=== PATIENT | male | born 1950 | race Caucasian/White ===

== ENCOUNTER 2017-12-26 09:39 | Emergency (ER) | payer MEDICARE ==
[2017-12-26 09:47] VITALS: TEMP 98.5
[2017-12-26] MEDS ORDERED: SODIUM CHLORIDE 0.9% 500 ML IV ONE (10:07)
[2017-12-26] MEDS ORDERED: KETOROLAC 30 MG/ML 1 ML VIAL IVP STA (10:08)
--- NOTE | 2017-12-26 10:10 | ED ---
General Adult HPI - General Chief complaint: Recheck/Abnormal Lab/Rx Stated complaint: High blood pressure Time Seen by Provider: 12/26/17 09:52 Source: patient, RN notes reviewed Mode of arrival: ambulatory Limitations: no limitations - History of Present Illness Initial comments: 67-year-old male presents emergency Department with chief complaint of hypertension. Patient states that he was at his dentist to have the tooth extracted they found him to be hypertensive and sent him to the hospital. Patient states she does take losartan for his blood pressure he has no specific complaint other than some left lower dental pain. He denies chest pain, shortness breath, headache, dizziness, nausea vomiting. Patient states she did take her [place] for pain. Patient states he has not missed any doses of his blood pressure medication. - Related Data Allergies Allergy/AdvReac Type Severity Reaction Status Date / Time Sulfa (Sulfonamide AdvReac Unknown Verified 12/26/17 09:47 Antibiotics) Review of Systems ROS Statement: Those systems with pertinent positive or pertinent negative responses have been documented in the HPI. ROS Other: All systems not noted in ROS Statement are negative. Past Medical History Past Medical History: Cancer, Diabetes Mellitus, Hyperlipidemia, Hypertension Additional Past Medical History / Comment(s): previous colon cancer in 1987 History of Any Multi-Drug Resistant Organisms: None Reported Past Surgical History: Bowel Resection Past Psychological History: Depression Smoking Status: Never smoker Past Alcohol Use History: None Reported Past Drug Use History: None Reported General Exam Limitations: no limitations General appearance: alert, in no apparent distress Head exam: Present: atraumatic, normocephalic, normal inspection Eye exam: Present: normal appearance, PERRL, EOMI. Absent: scleral icterus, conjunctival injection, periorbital swelling ENT exam: Present: mucous membranes moist. Absent: normal exam, normal oropharynx (Edentulous) Neck exam: Present: normal inspection, full ROM. Absent: tenderness, meningismus, lymphadenopathy Respiratory exam: Present: normal lung sounds bilaterally. Absent: respiratory distress, wheezes, rales, rhonchi, stridor Cardiovascular Exam: Present: regular rate, normal rhythm, normal heart sounds. Absent: systolic murmur, diastolic murmur, rubs, gallop, clicks Course Vital Signs 12/26/17 12/26/17 09:41 11:04 Temperature 98.5 F Pulse Rate 65 66 Respiratory 18 16 Rate Blood Pressure 214/103 171/77 O2 Sat by Pulse 98 95 Oximetry EKG Findings - EKG Comments: EKG Findings:: EKG performed at 9:52 sinus bradycardia with a rate of 59 MD 186 QRS 74 QT/QTC 388/384 Medical Decision Making - Medical Decision Making 67-year-old male presented from [place] office for elevated blood pressure. Patient's blood pressure was initially elevated on triage. Patient's blood pressure has improved with no medications currently blood pressure 150/72. Patient is asymptomatic. Patient does take losartan currently. He'll follow- up with his PCP for recheck and return parameters were discussed. - Lab Data Result diagrams: 12/26/17 10:06 12/26/17 10:06 Lab Results 12/26/17 12/26/17 12/26/17 Range/Units 10:06 10:06 10:06 WBC 8.3 (3.8-10.6) k/uL RBC 5.20 (4.30-5.90) m/uL Hgb 14.6 (13.0-17.5) gm/dL Hct 44.7 (39.0-53.0) % MCV 85.9 (80.0-100.0) fL MCH 28.0 (25.0-35.0) pg MCHC 32.6 (31.0-37.0) g/dL RDW 13.4 (11.5-15.5) % Plt Count 170 (150-450) k/uL Neutrophils % 70 % Lymphocytes % 19 % Monocytes % 7 % Eosinophils % 2 % Basophils % 0 % Neutrophils # 5.8 (1.3-7.7) k/uL Lymphocytes # 1.6 (1.0-4.8) k/uL Monocytes # 0.6 (0-1.0) k/uL Eosinophils # 0.2 (0-0.7) k/uL Basophils # 0.0 (0-0.2) k/uL Sodium 140 (137-145) mmol/L Potassium 4.3 (3.5-5.1) mmol/L Chloride 105 (98-107) mmol/L Carbon Dioxide 26 (22-30) mmol/L Anion Gap 9 mmol/L BUN 17 (9-20) mg/dL Creatinine 1.09 (0.66-1.25) mg/dL Est GFR (CKD-EPI)AfAm 80 (>60 ml/min/1.73 sqM) Est GFR (CKD-EPI)NonAf 69 (>60 ml/min/1.73 sqM) Glucose 145 H (74-99) mg/dL Calcium 9.4 (8.4-10.2) mg/dL Total Bilirubin 0.6 (0.2-1.3) mg/dL AST 23 (17-59) U/L ALT 36 (21-72) U/L Alkaline Phosphatase 66 (38-126) U/L Troponin I 0.013 (0.000-0.034) ng/mL Total Protein 6.7 (6.3-8.2) g/dL Albumin 4.1 (3.5-5.0) g/dL Disposition Clinical Impression: Hypertension Disposition: HOME SELF-CARE Condition: Stable Instructions: Hypertension (ED) Additional Instructions: Your blood pressure while emergency department was 158/72. Continue to monitor your blood pressure and follow-up with your PCP. Please return to the Emergency Department if symptoms worsen or any other concerns. Is patient prescribed a controlled substance at d/c from ED?: No Referrals: Panda Peters MD [Primary Care Provider] - 1-2 days Time of Disposition: 11:22
[2017-12-26 10:34] LABS: Basophils % (A) 0 %; Eosinophils # (A) 0.2 k/uL (0-0.7); Eosinophils % (A) 2 %; HCT 44.7 % (39.0-53.0); HGB 14.6 gm/dL (13.0-17.5); Lymphocytes # (A) 1.6 k/uL (1.0-4.8); Lymphocytes % (A) 19 %; MCHC 32.6 g/dL (31.0-37.0); MCV 85.9 fL (80.0-100.0); Mean Platelet Volume 7.7; Monocytes # (A) 0.6 k/uL (0-1.0); Monocytes % (A) 7 %; Neutrophils # (A) 5.8 k/uL (1.3-7.7); Neutrophils % (A) 70 %; Platelet Count 170 k/uL (150-450); RDW 13.4 % (11.5-15.5); WBC 8.3 k/uL (3.8-10.6)
[2017-12-26 10:40] LABS: Albumin 4.1 g/dL (3.5-5.0); Calcium 9.4 mg/dL (8.4-10.2); Potassium 4.3 mmol/L (3.5-5.1); Total Bilirubin 0.6 mg/dL (0.2-1.3); Total Protein 6.7 g/dL (6.3-8.2)
[2017-12-26 11:28] VITALS: BP 142/69; PULSE 68; RESP 18
== END 2017-12-26 11:42 | disposition home or self-care (01) ==
LOC: EC 09:39
DX: I10 Essential (primary) hypertension (principal); K08.89 Other specified disorders of teeth and supporting structures; Z85.038 Personal history of other malignant neoplasm of large intestine; Z88.2 Allergy status to sulfonamides
CPT/HCPCS: 36415; 93005; 80053; 84484; 85025; 99283; 96374; 96361; J1885

== ENCOUNTER 2018-09-25 07:23 | Day surgery (SDC) | payer MEDICARE ==
[2018-09-24 09:27] VITALS: BMI 52.2
[~2018-09-25 07:23] MED LIST: LACTATED RINGERS 1,000 ML IV SCH; LIDOCAINE 1% 20 ML VIAL (10MG/ML) FOR IV START INTRADERMA PRN
[2018-09-25 07:57] LABS: Glucose,Whole Blood 145 mg/dL (75-99)
[2018-09-25 08:04] VITALS: TEMP 96.6
[2018-09-25] MEDS ORDERED: PROPOFOL 10 MG/ML 20 ML VIAL IV ONE (08:16)
--- NOTE | 2018-09-25 08:34 | P.PCN ---
Date of Procedure: 09/25/18 Procedure(s) Performed: BRIEF HISTORY: Patient is a 68-year-old pleasant white male, scheduled for an elective colonoscopy as a part of surveillance of prior history of colon cancer diagnosed in 1997. His last colonoscopy was 5 years ago. PROCEDURE PERFORMED: Colonoscopy. PREOPERATIVE DIAGNOSIS: History of colon cancer diagnosed 1997. IV sedation per Anesthesia. PROCEDURE: After informed consent was obtained, the patient, was brought into the endoscopy unit. IV sedation was administered by Anesthesia under continuous monitoring. Digital rectal examination was normal. Initially the Olympus CF-160 flexible video colonoscope was then inserted in the rectum, gradually advanced into the right colon there was early colon cancer anastomosis was visualized and appeared normal. Mucosa of the ascending colon, transverse colon, descending colon, sigmoid colon, and rectum appeared normal. Retroflexion was performed in the rectum and no lesions were seen. The patient tolerated the procedure well. IMPRESSION: Normal-appearing colon from rectum to right colon. No evidence of colitis or colorectal neoplasia. RECOMMENDATIONS: Findings of this examination were discussed with the patient as well as his family. He was advised to have a repeat the surveillance colonoscopy in 5 years..
[2018-09-25 08:41] VITALS: RESP 16
[2018-09-25 08:54] VITALS: BP 156/84; PULSE 55
== END 2018-09-25 09:11 | disposition home or self-care (01) ==
LOC: ORWHC2ENDO 07:23
PROVIDERS: ATTEND Internal Medicine Gastroenterology
DX: Z12.11 Encounter for screening for malignant neoplasm of colon (principal); I10 Essential (primary) hypertension; E78.5 Hyperlipidemia, unspecified; E11.9 Type 2 diabetes mellitus without complications; E66.01 Morbid (severe) obesity due to excess calories; Z79.84 Long term (current) use of oral hypoglycemic drugs; Z79.899 Other long term (current) drug therapy; Z90.49 Acquired absence of other specified parts of digestive tract; Z85.038 Personal history of other malignant neoplasm of large intestine; Z88.2 Allergy status to sulfonamides; Z68.43 Body mass index [BMI] 50.0-59.9, adult
CPT/HCPCS: J2704; G0105; 45378

== ENCOUNTER 2019-10-21 11:25 | Emergency (ER) | payer MEDICARE ==
[2019-10-21 11:35] VITALS: RESP 18
--- NOTE | 2019-10-21 11:50 | ED ---
Abdominal Pain HPI - General Chief Complaint: Abdominal Pain Stated Complaint: bowel problems Time Seen by Provider: 10/21/19 11:49 Source: patient, family Mode of arrival: wheelchair Limitations: no limitations - History of Present Illness Initial Comments: 69-year-old male presenting today for chief complaint of constipation. Patient states he is constipated for 3 days. Enteric A at home laxative he states he had diarrhea. Patient states the past day and a half he has not had additional bowel movement patient was concerned he is obstructed and presented to the emergency department he denies any nausea vomiting or abdominal pain he states he feels slightly distended. Remaining review of system negative - Related Data Home Medications Medication Instructions Recorded Confirmed Ergocalciferol (Vitamin D2) 50,000 unit PO TU 09/24/18 09/25/18 [Vitamin D2] Hydrocodone/Acetaminophen [Vicodin 1 tab PO Q6HR PRN 09/24/18 09/25/18 Hp 10-300 mg Tablet] Losartan Potassium 100 mg PO DAILY 09/24/18 09/25/18 Simvastatin [Zocor] 20 mg PO HS 09/24/18 09/25/18 glipiZIDE [Glucotrol] 10 mg PO AC-BID 09/24/18 09/25/18 metFORMIN HCL 1,000 mg PO BID 09/24/18 09/25/18 traZODone HCL 50 mg PO HS 09/24/18 09/25/18 Allergies Allergy/AdvReac Type Severity Reaction Status Date / Time Sulfa (Sulfonamide AdvReac Abdominal Verified 10/21/19 11:35 Antibiotics) Pain Review of Systems ROS Statement: Those systems with pertinent positive or pertinent negative responses have been documented in the HPI. ROS Other: All systems not noted in ROS Statement are negative. Past Medical History Past Medical History: Cancer, Diabetes Mellitus, Hyperlipidemia, Hypertension Additional Past Medical History / Comment(s): previous colon cancer in 1987-with sx and chemo History of Any Multi-Drug Resistant Organisms: None Reported Past Surgical History: Appendectomy, Bowel Resection, Tonsillectomy Additional Past Surgical History / Comment(s): colonoscopy. 20% colon removed in 1987 Past Anesthesia/Blood Transfusion Reactions: No Reported Reaction Past Psychological History: Depression Smoking Status: Never smoker - Past Family History Father Family Medical History: Cancer Sister(s) Family Medical History: Cancer Additional Family Medical History / Comment(s): ONE SISTER-OVARIAN CANCER. ONE SISTER -LIVER General Exam - General Exam Comments Initial Comments: General: The patient is awake and alert, in no distress Eye: +3 mm pupils are equal, round and reactive to light, extra-ocular movements are intact. No nystagmus. There is normal conjunctiva bilaterally. No signs of icterus. Ears, nose, mouth and throat: There are moist mucous membranes and no oral lesions. Neck: The neck is supple, there is no tenderness or JVD. Cardiovascular: There is a regular rate and rhythm. No murmur, rub or gallop is appreciated. Respiratory: Lungs are clear to auscultation, respirations are non-labored, breath sounds are equal. No wheezes, stridor, rales, or rhonchi. Gastrointestinal: Soft, non-distended, non-tender abdomen without masses or o rganomegaly noted. There is no rebound or guarding present. Musculoskeletal: Normal ROM, no tenderness. Strength 5/5. Sensation intact. Radial pulses equal bilaterally 2+. Neurological: A&O x 3. CN II-XII intact grossly, There are no obvious motor or sensory deficits. Coordination appears grossly intact. Speech is normal. Skin: Skin is warm and dry and no rashes or lesions are noted. Psychiatric: Cooperative, appropriate mood & affect, normal judgment. Limitations: no limitations Course Vital Signs 10/21/19 10/21/19 11:31 14:33 Temperature 97.7 F 97.0 F L Pulse Rate 61 67 Respiratory 18 18 Rate Blood Pressure 147/83 140/88 O2 Sat by Pulse 97 97 Oximetry Medical Decision Making - Medical Decision Making Pt not obstructed on CT, redemonstrated ileus. Patient abdomen non-tender. No stool ball appreciated on CT. Patient will be discharged with bowel regime, return parameters discussed. I discussed incidental findings of cyst on pancreas and recommended pcp f/u with GI referral, possible MRI for further evaluation. Patient agreeable to this care plan and discharge. Dr. Hernandez is agreeable to care plan. - Lab Data Result diagrams: 10/21/19 11:45 10/21/19 11:45 Lab Results 10/21/19 10/21/19 Range/Units 11:45 11:45 WBC 10.5 (3.8-10.6) k/uL RBC 5.24 (4.30-5.90) m/uL Hgb 14.8 (13.0-17.5) gm/dL Hct 46.5 (39.0-53.0) % MCV 88.9 (80.0-100.0) fL MCH 28.3 (25.0-35.0) pg MCHC 31.8 (31.0-37.0) g/dL RDW 13.3 (11.5-15.5) % Plt Count 199 (150-450) k/uL Neutrophils % 80 % Lymphocytes % 12 % Monocytes % 5 % Eosinophils % 1 % Basophils % 0 % Neutrophils # 8.4 H (1.3-7.7) k/uL Lymphocytes # 1.3 (1.0-4.8) k/uL Monocytes # 0.6 (0-1.0) k/uL Eosinophils # 0.1 (0-0.7) k/uL Basophils # 0.0 (0-0.2) k/uL Sodium 136 L (137-145) mmol/L Potassium 4.7 (3.5-5.1) mmol/L Chloride 99 (98-107) mmol/L Carbon Dioxide 28 (22-30) mmol/L Anion Gap 9 mmol/L BUN 17 (9-20) mg/dL Creatinine 0.92 (0.66-1.25) mg/dL Est GFR (CKD-EPI)AfAm >90 (>60 ml/min/1.73 sqM) Est GFR (CKD-EPI)NonAf 84 (>60 ml/min/1.73 sqM) Glucose 209 H (74-99) mg/dL Calcium 9.8 (8.4-10.2) mg/dL Total Bilirubin 0.5 (0.2-1.3) mg/dL AST 27 (17-59) U/L ALT 25 (4-49) U/L Alkaline Phosphatase 66 (38-126) U/L Total Protein 6.9 (6.3-8.2) g/dL Albumin 4.1 (3.5-5.0) g/dL Disposition Clinical Impression: Ileus, Diarrhea Disposition: HOME SELF-CARE Condition: Good Instructions (If sedation given, give patient instructions): Ileus (ED) Additional Instructions: Please use medication as discussed. Please follow-up with family doctor in the next 2 days. Please return to emergency room if the symptoms increase or worsen or for any other concerns. Is patient prescribed a controlled substance at d/c from ED?: No Referrals: Maylin Reynoso MD [Primary Care Provider] - 1-2 days Time of Disposition: 14:15
[2019-10-21 12:04] LABS: Basophils % (A) 0 %; Eosinophils # (A) 0.1 k/uL (0-0.7); Eosinophils % (A) 1 %; HCT 46.5 % (39.0-53.0); HGB 14.8 gm/dL (13.0-17.5); Lymphocytes # (A) 1.3 k/uL (1.0-4.8); Lymphocytes % (A) 12 %; MCH 28.3 pg (25.0-35.0); MCHC 31.8 g/dL (31.0-37.0); MCV 88.9 fL (80.0-100.0); Mean Platelet Volume 7.5; Monocytes # (A) 0.6 k/uL (0-1.0); Monocytes % (A) 5 %; Neutrophils # (A) 8.4 k/uL (1.3-7.7); Neutrophils % (A) 80 %; Platelet Count 199 k/uL (150-450); RBC 5.24 m/uL (4.30-5.90); RDW 13.3 % (11.5-15.5); WBC 10.5 k/uL (3.8-10.6)
--- NOTE | 2019-10-21 12:13 | XR ---
EXAMINATION TYPE: XR KUB DATE OF EXAM: 10/21/2019 COMPARISON: None INDICATION: Constipation TECHNIQUE: Single view abdomen upright view FINDINGS: Nonspecific small bowel gas is present. There is some air within the colon. Suspicious differential a ir-fluid levels are not evident. No free air is evident. Psoas margins are normal. No organomegaly is present. IMPRESSION: 1. Nonspecific abdomen. Consider focal ileus within the left midabdomen.
[2019-10-21 12:14] LABS: ALT 25 U/L (4-49); AST 27 U/L (17-59); African American GFR (CKD) >90 (>60 ml/min/1.73 sqM); Albumin 4.1 g/dL (3.5-5.0); Alkaline Phosphatase 66 U/L (38-126); Anion Gap 9 mmol/L; Blood Urea Nitrogen 17 mg/dL (9-20); Calcium 9.8 mg/dL (8.4-10.2); Carbon Dioxide 28 mmol/L (22-30); Chloride 99 mmol/L (98-107); Glucose 209 mg/dL (74-99); Non-African American GFR(CKD) 84 (>60 ml/min/1.73 sqM); Potassium 4.7 mmol/L (3.5-5.1); Sodium 136 mmol/L (137-145); Total Bilirubin 0.5 mg/dL (0.2-1.3); Total Protein 6.9 g/dL (6.3-8.2)
--- NOTE | 2019-10-21 14:02 | CT ---
EXAMINATION TYPE: CT abdomen pelvis w con DATE OF EXAM: 10/21/2019 COMPARISON: None INDICATION: pain, bowel issues DLP: 3482.2 mGycm, Automated exposure control for dose reduction was used. CONTRAST: 100 mL of Isovue 300. Study performed without Oral Contrast TECHNIQUE: Axial images were obtained from above the diaphragm to the pubic rami in the axial plane a t 5 mm thick sections. Reconstructed images are reviewed on the computer in the coronal plane. FINDINGS: Limited CT sections are obtained the lung bases. The lung bases are clear. CT ABDOMEN: Liver: Fatty infiltration liver Spleen: Normal Pancreas: At the posterior body of the pancreas is a hypodense structure measuring 2.2 x 1.8 cm. Tez tional workup is recommended. This measures 4 Hounsfield units. Cyst could be considered. Cystadenoma and cystadenocarcinoma should be considered as well. This is less distinct on the delayed images. Adrenal glands: The adrenal glands are normal. Gallbladder: Normal Kidneys: No masses are evident. No hydronephrosis is present. No cysts are present. Delayed images were obtained through the kidneys, which remain unremarkable. Aorta: Vascular calcification is within the aorta. Inferior vena cava: Normal. CT PELVIS: There are dilated fluid-filled small bowel loops within the midabdomen. Some fecal debris may be in t he ileum. Some mild change may be adjacent to the fecal debris filled ileum. Wall thickening is not e vident. There are loops of bowel which are incompletely distended or lack oral contrast limiting thei r evaluation. Appendix: Not identified. Urinary bladder: Normal. Genitourinary structures: Prostate appears unremarkable. Osseous structures: No suspicious lytic or sclerotic lesions. IMPRESSIONS: 1. Prominent small bowel loops without wall thickening. Some fecal debris within and inflammatory ch dara may be adjacent to the dilated ileum. Correlate for mild ileitis. 2. Cystlike structure within the posterior body of the pancreas. Additional workup with contrast MRI is recommended. Cyst would be within the differential. Other etiologies including neoplasm are not ex cluded at this time. 3. Mild fatty infiltration the liver.
[2019-10-21] MEDS ORDERED: POLYETHYLENE GLYCOL 3350 17 GM POWD.PACK PO STA (14:13)
[2019-10-21 14:33] VITALS: BP 140/88; PULSE 67; TEMP 97
== END 2019-10-21 14:33 | disposition home or self-care (01) ==
LOC: EC 11:25
DX: K56.7 Ileus, unspecified (principal); R19.7 Diarrhea, unspecified; F32.9 Major depressive disorder, single episode, unspecified; E11.9 Type 2 diabetes mellitus without complications; E78.5 Hyperlipidemia, unspecified; I10 Essential (primary) hypertension; Z79.84 Long term (current) use of oral hypoglycemic drugs; Z79.899 Other long term (current) drug therapy; Z88.2 Allergy status to sulfonamides; Z92.21 Personal history of antineoplastic chemotherapy; Z85.038 Personal history of other malignant neoplasm of large intestine; Z98.890 Other specified postprocedural states
CPT/HCPCS: 36415; 80053; 85025; 74018; 74177; 99284; Q9967

== ENCOUNTER → 2020-10-28 | Outpatient (CLI) | payer MEDICARE ==
--- NOTE | 2020-10-28 17:18 | XR ---
EXAMINATION TYPE: XR knee complete LT DATE OF EXAM: 10/28/2020 CLINICAL HISTORY: Strain injury 20 years ago with pain. TECHNIQUE: Three views of the left knee are obtained. COMPARISON: Left knee x-ray June 21, 2015. FINDINGS: There is no acute fracture/dislocation evident in the left knee. Medial meniscal calcifica tion identified. Moderate to severe narrowing with moderate medial spurring medial tibial femoral com partment more prominent than prior. Mild narrowing and spurring patellofemoral compartment similar to prior. Overlying soft tissue is unremarkable. IMPRESSION: Progressed osteoarthritic changes as detailed above.
--- NOTE | 2020-10-28 17:20 | XR ---
EXAMINATION TYPE: XR shoulder complete LT DATE OF EXAM: 10/28/2020 CLINICAL HISTORY: Pain running down left arm. TECHNIQUE: Three views of the left shoulder are obtained. COMPARISON: None. FINDINGS: There is no acute fracture/dislocation evident in the left shoulder. Moderate narrowing gl enohumeral joint. Moderate to severe narrowing of the acromioclavicular joint. Distal acromion morph ology unremarkable. The visualized ribs are intact . IMPRESSION: As above.
== END | disposition home or self-care (01) ==
LOC: RADXRMAIN 15:06
PROVIDERS: ATTEND Internal Medicine
DX: M17.12 Unilateral primary osteoarthritis, left knee (principal); M25.812 Other specified joint disorders, left shoulder

== ENCOUNTER → 2021-05-31 | Outpatient (CLI) | payer MEDICARE ==
--- NOTE | 2021-05-31 13:01 | CT ---
EXAMINATION TYPE: CT urogram wo/w con DATE OF EXAM: 05/31/2021 COMPARISON: CT abdomen and pelvis October 21, 2019 HISTORY: hematuria CT DLP: 3623 mGycm, Automated Exposure Control for Dose Reduction was Utilized. CONTRAST: CT scan of the abdomen and pelvis is performed without oral and without and with IV Contrast, patient injected with 80 mL of Isovue 300. FINDINGS: Suboptimal due to large body habitus. KUB: Noncontrast images show no definitive right-sided calculi. There is suggestion of 1-2 small 1 t o 2 mm nonobstructing mid to lower pole left renal calculi coronal images 59 and 60 series 4. Postcon trast images show symmetric corticomedullary uptake and excretion without hydronephrosis seen bilater ally. There is heterogeneous partially exophytic ball-shaped mass from the anterior aspect mid to low er pole left kidney measuring 5.2 x 5.1 cm axial image 41 series 6 x 4.2 cm craniocaudal dimension sa gittal image 94. Incomplete enhancement of bilateral ureters without obstructing mass or calculus. No additional mass or calculus within the urinary bladder. There is a patent draining left renal vein n oted. LUNG BASES: No significant abnormality is appreciated. LIVER/GB: No significant abnormality is appreciated. PANCREAS: Some mild to moderate focal atrophy level pancreatic head is redemonstrated. SPLEEN: No significant abnormality is seen. ADRENALS: No significant abnormality is seen. BOWEL: No significant abnormality is seen. PROSTATE/SEMINAL VESICLES: Prostate gland mildly enlarged in size. LYMPH NODES: No greater than 1cm abdominal or pelvic lymph nodes are appreciated. OSSEOUS STRUCTURES: [id number]-gn-[id number] multilevel spurring throughout the spine. Facet arthropathy lowe r lumbar levels. OTHER: No significant additional abnormality is seen. IMPRESSION: There is heterogeneous enhancing partially exophytic ball-shaped 5.2 cm mass in the anter ior aspect mid to lower pole left kidney consistent with renal cell carcinoma. Advise surgical referr alSonja
== END | disposition home or self-care (01) ==
LOC: RADCTMAIN 11:00
PROVIDERS: ATTEND Urology
DX: N28.89 Other specified disorders of kidney and ureter (principal)
CPT/HCPCS: 82565; 84520; 74178; 36415; 74400; Q9967

== ENCOUNTER → 2021-06-27 | Outpatient (CLI) | payer MEDICARE ==
[2021-06-27 19:00] LABS: Basophils # (A) 0.02 X 10*3/uL (0.00-0.10); Basophils % (A) 0.3 %; Eosinophils # (A) 0.17 X 10*3/uL (0.04-0.35); Eosinophils % (A) 2.6 %; HCT 42.5 % (39.6-50.0); HGB 13.2 g/dL (13.0-17.0); Immature Grans, Automated 0.5 %; Lymphocytes # (A) 2.02 X 10*3/uL (0.90-5.00); Lymphocytes % (A) 30.4 %; MCH 28.7 pg (27.0-32.0); MCHC 31.1 g/dL (32.0-37.0); MCV 92.4 fL (80.0-97.0); Mean Platelet Volume 10.5 fL (9.5-12.2); Monocytes # (A) 0.64 X 10*3/uL (0.20-1.00); Monocytes % (A) 9.6 %; NRBC Per 100 WBC 0 /100 WBCS (0.0-0.0); Neutrophils # (A) 3.77 X 10*3/uL (1.80-7.70); Neutrophils % (A) 56.6 %; Platelet Count 180 X 10*3/uL (140-440); WBC 6.65 X 10*3/uL (4.50-10.00)
[2021-06-27 19:11] LABS: African American GFR (CKD) 63.2 (60.0-200.0); Anion Gap 9.7 mmol/L (10.00-18.00); BUN/Creat Ratio 12.62 Ratio (12.00-20.00); Blood Urea Nitrogen 16.4 mg/dL (9.0-27.0); Calcium 9.4 mg/dL (8.7-10.3); Carbon Dioxide 27.3 mmol/L (20.0-27.5); Non-African American GFR(CKD) 54.5 (60.0-200.0); Potassium 4.4 mmol/L (3.5-5.5)
[2021-06-28 08:08] LABS: Appearance,Urine Clear (Clear); Bilirubin,Urine Negative (Negative); Blood,Urine Negative (Negative); Color,Urine Yellow (Yellow); Ketones,Urine Negative (Negative); Leukocyte Esterase,Urine Negative (Negative); Nitrite,Urine Negative (Negative); Protein,Urine Negative (Negative); Specific Gravity,Urine 1.019 (1.001-1.030); Urobilinogen,Urine 0.2 E.U./DL (0.0-1.0)
== END | disposition home or self-care (01) ==
LOC: LABPAT 13:20
PROVIDERS: ATTEND Urology
DX: Z01.812 Encounter for preprocedural laboratory examination (principal); D41.02 Neoplasm of uncertain behavior of left kidney
CPT/HCPCS: 36415; 80048; 81003; 85025; 87086

== ENCOUNTER 2021-07-04 08:56 | Day surgery (SDC) | payer MEDICARE ==
[2021-06-30 11:40] VITALS: BMI 53.2
--- NOTE | 2021-07-04 08:35 | P.HPIHPCON ---
History of Present Illness H&P Date: 07/04/21 Chief Complaint: Bladder tumor, left renal mass This is a 71-year-old male with history of gross hematuria. He underwent a cystoscopy that showed evidence of multiple small papillary bladder tumors, along the right posterior wall. Of note CT also showed a 6 cm left lower pole mass. Discussed with him given this finding I recommended proceeding with a transurethral resection of a bladder tumor. At the same time we'll perform a retrograde pyelogram possible ureteroscopy on the left to rule out transitional cell carcinoma on that site, given the CT finding. But discussed both with him and his daughter that the mass appeared more of a renal cell carcinoma rather than a transitional cell carcinoma. Discussed with him he will eventually require a left radical nephrectomy vs nephroureterectomy. Discussed the risk of the procedure which includes bleeding, infection, bladder perforation. He understood all the risk and agreed to proceed Consent for Procedure: I have explained the operation/procedure to the patient, including the risks, benefits, side effects, alternative therapies (including not receiving the proposed treatment or service), the likelihood of the patient achieving his/her goals, and potential recuperation problems for the procedure/sedation/analgesia, as well as any blood products, if indicated. I also explained to the patient the risks, benefits and side effects of the alternatives, as well as the risks related to not receiving the proposed procedure, care, treatment, or services. Past Medical History Past Medical History: Cancer, Diabetes Mellitus, Hyperlipidemia, Hypertension Additional Past Medical History / Comment(s): bladder tumor,left kidney mass, hx previous colon cancer in 1987-with sx and chemo,kidney stones,bleeding gastric ulcer History of Any Multi-Drug Resistant Organisms: None Reported Past Surgical History: Appendectomy, Bowel Resection, Tonsillectomy Additional Past Surgical History / Comment(s): colonoscopy. 20% colon removed in 1987 Past Anesthesia/Blood Transfusion Reactions: No Reported Reaction Additional Past Anesthesia/Blood Transfusion Reaction / Comment(s): no problems with prior blood transfusions Smoking Status: Current some day smoker - Past Family History Father Family Medical History: Cancer Additional Family Medical History / Comment(s): kidney CA Sister(s) Family Medical History: Cancer Additional Family Medical History / Comment(s): ONE SISTER-OVARIAN CANCER. ONE SISTER -LIVER Medications and Allergies Home Medications Medication Instructions Recorded Confirmed Type Ergocalciferol (Vitamin D2) 50,000 unit PO TU 09/24/18 06/30/21 History [Vitamin D2] Hydrocodone/Acetaminophen [Vicodin 1 tab PO Q6HR PRN 09/24/18 06/30/21 History Hp 10-300 mg Tablet] Losartan Potassium 100 mg PO HS 09/24/18 06/30/21 History Simvastatin [Zocor] 20 mg PO HS 09/24/18 06/30/21 History glipiZIDE [Glucotrol] 10 mg PO AC-BID 09/24/18 06/30/21 History metFORMIN HCL [Glucophage] 1,000 mg PO BID 09/24/18 06/30/21 History traZODone HCL 100 mg PO HS 09/24/18 06/30/21 History Ferrous Sulfate [Iron] 325 mg PO DAILY 06/30/21 06/30/21 History Multivit-Min/Folic/Vit K/Lycop 1 each PO DAILY 06/30/21 06/30/21 History [Men's Multivitamin Tablet] Pioglitazone HCl 30 mg PO DAILY 06/30/21 06/30/21 History Allergies Allergy/AdvReac Type Severity Reaction Status Date / Time Sulfa (Sulfonamide AdvReac Abdominal Verified 06/30/21 11:09 Antibiotics) Pain Surgical - Exam - General no distress - ENT normal nares, normal mucosa - Respiratory normal expansion, normal respiratory effort - Abdomen Abdomen: soft, non tender - Psychiatric oriented to time, oriented to person, oriented to place Assessment and Plan Assessment: 71-year-old male with history of a bladder mass -Or for TURBT, left retrograde pyelogram, possible ureteroscopy
[~2021-07-04 08:56] MED LIST changes: +DEXAMETHASONE SOD PHOSPHATE 4 MG/ML 1 ML VIAL IV ONE; +HYDROmorphone 0.5 MG/0.5 ML SYRINGE IVP PRN; -LIDOCAINE 1% 20 ML VIAL (10MG/ML) FOR IV START INTRADERMA PRN; +MIDAZOLAM 2 MG/2 ML VIAL IV PRN; +ONDANSETRON 4 MG/2 ML VIAL IVP ONE
[2021-07-04 09:54] LABS: Glucose,Whole Blood 118 mg/dL (75-99)
[2021-07-04] MEDS ORDERED: LIDOCAINE 1% INJ 10MG/ML (20 ML MDV) ONE (10:04)
[2021-07-04] MEDS ORDERED: GLYCOPYRROLATE 0.2 MG/ML 2 ML VIAL ONE (10:04)
[2021-07-04] MEDS ORDERED: PROPOFOL 10 MG/ML 20 ML VIAL IV ONE (10:04)
[2021-07-04] MEDS ORDERED: SUCCINYLCHOLINE CHLORIDE 100 MG/5 ML SYR IV ONE (10:04)
[2021-07-04] MEDS ORDERED: ROCURONIUM 10 MG/ML (5 ML VIAL) IV ONE (10:04)
[2021-07-04] MEDS ORDERED: NEOSTIGMINE 1 MG/ML 10 ML VIAL ONE (10:04)
[2021-07-04] MEDS ORDERED: fentaNYL (PF) 50 MCG/ML 2 ML AMP ONE (10:04)
[2021-07-04] MEDS ORDERED: MIDAZOLAM 2 MG/2 ML VIAL ONE (10:04)
[2021-07-04] MEDS ORDERED: IOPAMIDOL-370 50ML BTL MISCELLANE ONE (10:33)
--- NOTE | 2021-07-04 10:55 | FL ---
EXAMINATION TYPE: FL urography retrograde DATE OF EXAM: 07/04/2021 CLINICAL HISTORY: Left-sided kidney stone TECHNIQUE: Fluoroscopy. COMPARISON: None. FINDINGS: Fluoroscopic guidance was provided during cystoscopy with retrograde urogram procedure per formed by Dr. Ricks. A total of 14 seconds of fluoroscopic time was utilized during the procedure a nd 4 spot images was acquired. Images acquired show access and subsequent opacification of the left u reter. IMPRESSION: As Above.
--- NOTE | 2021-07-04 11:17 | P.OP ---
Date of Procedure: 07/04/21 Preoperative Diagnosis: Bladder tumor Postoperative Diagnosis: Left renal mass, bladder tumor, bladder stones Procedure(s) Performed: TURBT ( medium), left retrograde pyelogram, bladder stone irrigation Implants: none Anesthesia: VALENTINOA Surgeon: Rey Dean Estimated Blood Loss (ml): 10 Pathology: other (bladder tumor, bladder stone, left renal cytology) Condition: stable Disposition: PACU Indications for Procedure: This is a 71-year-old male with history of gross hematuria. He underwent a cystoscopy that showed evidence of multiple small papillary bladder tumors, along the right posterior wall. Of note CT also showed a 6 cm left lower pole mass. Discussed with him given this finding I recommended proceeding with a transurethral resection of a bladder tumor. At the same time we'll perform a retrograde pyelogram possible ureteroscopy on the left to rule out transitional cell carcinoma on that site, given the CT finding. But discussed both with him and his daughter that the mass appeared more of a renal cell carcinoma rather than a transitional cell carcinoma. Discussed with him he will eventually require a left radical nephrectomy vs nephroureterectomy. Discussed the risk of the procedure which includes bleeding, infection, bladder perforation. He understood all the risk and agreed to proceed Operative Findings: Erythematous, edematous lesion along the right lateral wall measured 1 cm an additional one along the dome measured approximately 2 cm, Description of Procedure: Patient was brought to the operating room, general anesthesia was induced. He was prepped and draped in sterile fashion and placed in dorsal lithotomy position. A cystoscopy fitted with a 21-[place] sheath was inserted per urethra, cystoscopy was performed which showed a moderately enlarged prostate, there was evidence of 2 edematous lesions, 1 along the right lateral wall and one along the dome. Attention was then carried to the left ureteral orifice which was intubated with an open-ended catheter. Catheter was advanced into the renal pelvis, and cytology was obtained. Next retrograde pyelogram was performed on the left side which showed no filling defect or hydronephrosis. The ureter was of normal caliber no filling defects were seen. At this time the cystoscope was withdrawn and a resectoscope was inserted. There was multiple small stones that were irrigated out. Attention was then carried to the bladder tumor, there were 2 lesions 1 measured 2 cm along the dome and one along the right lateral wall that measured 1 cm. Tumors appeared edematous with somewhat of a papillary appearance. The tumors were resected down and the area of resection was thoroughly fulgurated of note given patient's morbid obesity, the bladder dome tumors were difficult to resect but I was able to completely resected down and fulgurate the area. Repeat cystoscopy showed no evidence of any tumor chips or any evidence of bleeding or additional tumors. The resectoscope was withdrawn a nd a 20-[place] Bhatia was placed with return of clear urine. Patient tolerated the procedure was taken to recovery in stable condition
[2021-07-04 11:35] VITALS: TEMP 97.3
[2021-07-04 11:55] LABS: Glucose,Whole Blood 152 mg/dL (75-99)
[2021-07-04 12:08] VITALS: RESP 18
[2021-07-04 12:24] VITALS: BP 144/66; PULSE 73
== END 2021-07-04 13:07 | disposition home or self-care (01) ==
LOC: OR 08:56
PROVIDERS: ATTEND Urology
DX: N28.89 Other specified disorders of kidney and ureter (principal); D49.4 Neoplasm of unspecified behavior of bladder
CPT/HCPCS: 52005; 88108; 88307; 82365; 74420; C1758 ×2; J2250; J1100; J2710; J0690; J2405; J2001; J3010; J0330; J2704; Q9967

== ENCOUNTER 2021-07-05 05:46 | Emergency (ER) | payer MEDICARE ==
[2021-07-05 05:56] VITALS: RESP 18
--- NOTE | 2021-07-05 06:19 | ED ---
General Adult HPI - General Source: patient, EMS, RN notes reviewed Mode of arrival: EMS Limitations: no limitations <Harsh Garcia - Last Filed: 07/05/21 07:36> <Daniela Toney - Last Filed: 07/08/21 23:45> - General Chief complaint: Recheck/Abnormal Lab/Rx Stated complaint: post-op urinary bleeding Time Seen by Provider: 07/05/21 06:01 - History of Present Illness Initial comments: 71-year-old male presents emergency Department with chief complaint of blood in catheter. Patient had TURP performed by Dr. Dean yesterday. Patient states that his catheter bag has been filled with bright red blood 3 times. Patient does have a history of anemia with transfusion. Patient does not take any blood thinners. He states he is constipated denies any localized abdominal pain. Denies any lower abdominal pressure catheter has been draining well. Patient denies any fevers chills no chest pain or shortness breath no other associated symptoms. (Harsh Garcia) - Related Data Home Medications Medication Instructions Recorded Confirmed Ergocalciferol (Vitamin D2) 50,000 unit PO TU 09/24/18 06/30/21 [Vitamin D2] Hydrocodone/Acetaminophen [Vicodin 1 tab PO Q6HR PRN 09/24/18 06/30/21 Hp 10-300 mg Tablet] Losartan Potassium 100 mg PO HS 09/24/18 06/30/21 Simvastatin [Zocor] 20 mg PO HS 09/24/18 06/30/21 glipiZIDE [Glucotrol] 10 mg PO AC-BID 09/24/18 06/30/21 metFORMIN HCL [Glucophage] 1,000 mg PO BID 09/24/18 06/30/21 traZODone HCL 100 mg PO HS 09/24/18 06/30/21 Ferrous Sulfate [Iron] 325 mg PO DAILY 06/30/21 06/30/21 Multivit-Min/Folic/Vit K/Lycop 1 each PO DAILY 06/30/21 06/30/21 [Men's Multivitamin Tablet] Pioglitazone HCl 30 mg PO DAILY 06/30/21 06/30/21 Previous Rx's Medication Instructions Recorded Cephalexin [Keflex] 500 mg PO Q8HR #15 cap 07/04/21 Phenazopyridine [Pyridium] 100 mg PO TID #9 tablet 07/04/21 Allergies Allergy/AdvReac Type Severity Reaction Status Date / Time Sulfa (Sulfonamide AdvReac Abdominal Verified 07/04/21 09:24 Antibiotics) Pain Review of Systems ROS Other: All systems not noted in ROS Statement are negative. <RadhaHarsh Pulido - Last Filed: 07/05/21 07:36> ROS Other: All systems not noted in ROS Statement are negative. <Daniela Toney - Last Filed: 07/08/21 23:45> ROS Statement: Those systems with pertinent positive or pertinent negative responses have been documented in the HPI. Past Medical History Past Medical History: Cancer, Diabetes Mellitus, Hyperlipidemia, Hypertension Additional Past Medical History / Comment(s): previous colon cancer in 1987-with sx and chemo History of Any Multi-Drug Resistant Organisms: None Reported Past Surgical History: Appendectomy, Bowel Resection, Tonsillectomy Additional Past Surgical History / Comment(s): colonoscopy. 20% colon removed in 1987. TURP 2021 Past Anesthesia/Blood Transfusion Reactions: No Reported Reaction Past Psychological History: Depression Past Drug Use History: None Reported - Past Family History Father Family Medical History: Cancer Sister(s) Family Medical History: Cancer Additional Family Medical History / Comment(s): ONE SISTER-OVARIAN CANCER. ONE SISTER -LIVER <Harsh Garcia - Last Filed: 07/05/21 07:36> General Exam General appearance: alert, in no apparent distress Head exam: Present: atraumatic, normocephalic, normal inspection Respiratory exam: Present: normal lung sounds bilaterally. Absent: respiratory distress, wheezes, rales, rhonchi, stridor Cardiovascular Exam: Present: regular rate, normal rhythm, normal heart sounds. Absent: systolic murmur, diastolic murmur, rubs, gallop, clicks GI/Abdominal exam: Present: soft, normal bowel sounds. Absent: distended, tenderness, guarding, rebound, rigid Back exam: Absent: CVA tenderness (R), CVA tenderness (L) Neurological exam: Present: alert Skin exam: Present: warm, dry, intact, normal color. Absent: rash <Harsh Garcia - Last Filed: 07/05/21 07:36> Course Vital Signs 02/15/22 02/15/22 02/15/22 05:50 06:20 08:02 Temperature 97.3 F L 98.2 F Pulse Rate 62 63 78 Respiratory 18 18 18 Rate Blood Pressure 146/68 155/83 134/69 O2 Sat by Pulse 96 94 L 98 Oximetry Medical Decision Making - Lab Data Result diagrams: 07/05/21 06:20 07/05/21 06:57 <Harsh Garcia - Last Filed: 07/05/21 07:36> - Lab Data Result diagrams: 07/05/21 06:20 07/05/21 06:57 <Daniela Toney - Last Filed: 07/08/21 23:45> - Medical Decision Making 69-year-old male presents emergency Department for hematuria. Patient had a TURP yesterday patient's hemoglobin within normal limits at 13.6. Patient is complaint of constipation which is been ongoing worsen by pain meds. Patient will be given magnesium citrate. Patient discharged in stable condition return parameters were discussed. (Harsh Garcia) I was available for consultation in the emergency department. The history and physical exam were done by the midlevel provider. I was consulted for this patients care. I reviewed the case with the midlevel provider and based on their presentation of the patient, I agree with the assessment, medical decision making and plan of care as documented. Chart was dictated using [employer] formerly [employer] dictation software. Attempts were made to correct any dictation errors however some typographical errors may persist. Patient was seen during a national state of emergency due to the Covid-19 pandemic. (Daniela Toney) - Lab Data Lab Results 07/05/21 07/05/21 07/05/21 Range/Units 06:08 06:18 06:20 WBC 13.1 H (3.8-10.6) k/uL RBC 4.53 (4.30-5.90) m/uL Hgb 13.2 (13.0-17.5) gm/dL Hct 41.3 (39.0-53.0) % MCV 91.1 (80.0-100.0) fL MCH 29.1 (25.0-35.0) pg MCHC 32.0 (31.0-37.0) g/dL RDW 13.9 (11.5-15.5) % Plt Count 210 (150-450) k/uL MPV 7.5 Neutrophils % 83 % Lymphocytes % 9 % Monocytes % 7 % Eosinophils % 0 % Basophils % 0 % Neutrophils # 10.9 H (1.3-7.7) k/uL Lymphocytes # 1.2 (1.0-4.8) k/uL Monocytes # 0.9 (0-1.0) k/uL Eosinophils # 0.0 (0-0.7) k/uL Basophils # 0.0 (0-0.2) k/uL Sodium (137-145) mmol/L Potassium (3.5-5.1) mmol/L Chloride (98-107) mmol/L Carbon Dioxide (22-30) mmol/L Anion Gap mmol/L BUN (9-20) mg/dL Creatinine (0.66-1.25) mg/dL Est GFR (CKD-EPI)AfAm (>60 ml/min/1.73 sqM) Est GFR (CKD-EPI)NonAf (>60 ml/min/1.73 sqM) Glucose (74-99) mg/dL Calcium (8.4-10.2) mg/dL Blood Type O Positive Blood Type Confirm O Positive Blood Type Recheck No Previous Record Bld Type Recheck Status CABO Indicated Antibody Screen NEGATIVE Spec Expiration Date 07/08/2021 - 230707/05/21 Range/Units 06:57 WBC (3.8-10.6) k/uL RBC (4.30-5.90) m/uL Hgb (13.0-17.5) gm/dL Hct (39.0-53.0) % MCV (80.0-100.0) fL MCH (25.0-35.0) pg MCHC (31.0-37.0) g/dL RDW (11.5-15.5) % Plt Count (150-450) k/uL MPV Neutrophils % % Lymphocytes % % Monocytes % % Eosinophils % % Basophils % % Neutrophils # (1.3-7.7) k/uL Lymphocytes # (1.0-4.8) k/uL Monocytes # (0-1.0) k/uL Eosinophils # (0-0.7) k/uL Basophils # (0-0.2) k/uL Sodium 134 L (137-145) mmol/L Potassium 4.2 (3.5-5.1) mmol/L Chloride 99 (98-107) mmol/L Carbon Dioxide 30 (22-30) mmol/L Anion Gap 5 mmol/L BUN 20 (9-20) mg/dL Creatinine 1.46 H (0.66-1.25) mg/dL Est GFR (CKD-EPI)AfAm 55 (>60 ml/min/1.73 sqM) Est GFR (CKD-EPI)NonAf 47 (>60 ml/min/1.73 sqM) Glucose 159 H (74-99) mg/dL Calcium 8.7 (8.4-10.2) mg/dL Blood Type Blood Type Confirm Blood Type Recheck Bld Type Recheck Status Antibody Screen Spec Expiration Date Disposition Is patient prescribed a controlled substance at d/c from ED?: No Time of Disposition: 07:40 <Harsh Garcia - Last Filed: 07/05/21 07:36> <Daniela Toney - Last Filed: 07/08/21 23:45> Clinical Impression: Hematuria, S/P TURP Disposition: HOME SELF-CARE Condition: Stable Instructions (If sedation given, give patient instructions): Hematuria (ED) Additional Instructions: Please return to the Emergency Department if symptoms worsen or any other concerns. Referrals: Maylin Reynoso MD [Primary Care Provider] - 1-2 days
[2021-07-05 06:32] LABS: Basophils % (A) 0 %; Eosinophils % (A) 0 %; HCT 41.3 % (39.0-53.0); HGB 13.2 gm/dL (13.0-17.5); Lymphocytes # (A) 1.2 k/uL (1.0-4.8); Lymphocytes % (A) 9 %; MCH 29.1 pg (25.0-35.0); MCV 91.1 fL (80.0-100.0); Mean Platelet Volume 7.5; Monocytes # (A) 0.9 k/uL (0-1.0); Monocytes % (A) 7 %; Neutrophils # (A) 10.9 k/uL (1.3-7.7); Neutrophils % (A) 83 %; Platelet Count 210 k/uL (150-450); RBC 4.53 m/uL (4.30-5.90); RDW 13.9 % (11.5-15.5); WBC 13.1 k/uL (3.8-10.6)
[2021-07-05 07:30] LABS: Calcium 8.7 mg/dL (8.4-10.2); Potassium 4.2 mmol/L (3.5-5.1)
[2021-07-05] MEDS ORDERED: MAGNESIUM CITRATE 296 ML BOTTLE PO ONE (07:36)
[2021-07-05 08:03] VITALS: BP 134/69; PULSE 78; TEMP 98.2
== END 2021-07-05 08:02 | disposition home or self-care (01) ==
LOC: EC 05:46
DX: Z48.816 Encounter for surgical aftercare following surgery on the genitourinary system (principal); R31.9 Hematuria, unspecified; E11.9 Type 2 diabetes mellitus without complications; E78.5 Hyperlipidemia, unspecified; I10 Essential (primary) hypertension; F32.A Depression, unspecified; Z79.84 Long term (current) use of oral hypoglycemic drugs; Z88.2 Allergy status to sulfonamides; Z85.038 Personal history of other malignant neoplasm of large intestine; Z90.49 Acquired absence of other specified parts of digestive tract
CPT/HCPCS: 36415; 80048; 85025; 86850; 86900; 86901; 99283

== ENCOUNTER → 2021-10-24 | Outpatient (CLI) | payer MEDICARE ==
[2021-10-24 17:58] LABS: Basophils # (A) 0.02 X 10*3/uL (0.00-0.10); Basophils % (A) 0.3 %; Eosinophils # (A) 0.25 X 10*3/uL (0.04-0.35); Eosinophils % (A) 3.7 %; HCT 44.1 % (39.6-50.0); HGB 13.3 g/dL (13.0-17.0); Immature Grans, Automated 0.6 %; Lymphocytes % (A) 24.9 %; MCHC 30.2 g/dL (32.0-37.0); MCV 92.8 fL (80.0-97.0); Mean Platelet Volume 10.7 fL (9.5-12.2); Monocytes # (A) 0.72 X 10*3/uL (0.20-1.00); Monocytes % (A) 10.6 %; NRBC Per 100 WBC 0 /100 WBCS (0.0-0.0); Neutrophils # (A) 4.09 X 10*3/uL (1.80-7.70); Neutrophils % (A) 59.9 %; Platelet Count 213 X 10*3/uL (140-440); RBC 4.75 X 10*6/uL (4.40-5.60); WBC 6.82 X 10*3/uL (4.50-10.00)
[2021-10-24 18:23] LABS: African American GFR (CKD) 77.3 (60.0-200.0); Anion Gap 8.6 mmol/L (10.00-18.00); BUN/Creat Ratio 14.45 Ratio (12.00-20.00); Blood Urea Nitrogen 15.9 mg/dL (9.0-27.0); Calcium 9.4 mg/dL (8.7-10.3); Carbon Dioxide 31.4 mmol/L (20.0-27.5); Non-African American GFR(CKD) 66.7 (60.0-200.0); Potassium 5.1 mmol/L (3.5-5.5)
== END | disposition home or self-care (01) ==
LOC: LABWHC1 12:50
PROVIDERS: ATTEND Hospitalist
DX: Z01.810 Encounter for preprocedural cardiovascular examination (principal); N28.89 Other specified disorders of kidney and ureter
CPT/HCPCS: 36415; 80048; 85025; 86850; 86900; 86901

== ENCOUNTER → 2023-07-18 | Outpatient (CLI) | payer MEDICARE ==
[2023-07-19 09:34] LABS: ALT 15 U/L (10-49); AST 24 U/L (14-35); Albumin/Globulin Ratio 1.54 Ratio (1.60-3.17); Alkaline Phosphatase 78 U/L (41-126); BUN/Creat Ratio 10.75 Ratio (12.00-20.00); Blood Urea Nitrogen 17.2 mg/dL (9.0-27.0); Calcium 9.3 mg/dL (8.7-10.3); Carbon Dioxide 25.4 mmol/L (21.6-31.8); Chloride 102 mmol/L (96-109); Globulin 2.6 g/dL (1.6-3.3); Glucose 89 mg/dL (70-110); Potassium 4.6 mmol/L (3.5-5.5); Sodium 142 mmol/L (135-145); Total Bilirubin 0.4 mg/dL (0.3-1.2); Total Protein 6.6 g/dL (6.2-8.2)
== END | disposition home or self-care (01) ==
LOC: LABWHC1 15:24
PROVIDERS: ATTEND Internal Medicine Interventional Cardiology
DX: I48.3 Typical atrial flutter (principal); R06.09 Other forms of dyspnea
CPT/HCPCS: 36415; 80053; 83880; 84443

== ENCOUNTER 2023-08-10 06:56 | Day surgery (SDC) | payer MEDICARE ==
[~2023-08-10 06:56] MED LIST changes: +ALPRAZolam 0.25 MG TAB PO PRN; +ALPRAZolam 0.5 MG TAB PO PRN; +ASPIRIN 325 MG TAB PO STA; +ATORVASTATIN 80 MG TAB PO STA; -DEXAMETHASONE SOD PHOSPHATE 4 MG/ML 1 ML VIAL IV ONE; +HEPARIN SODIUM,PORCINE (1 ML) 2,500 UNIT in SODIUM CHLORIDE 0.9% 250 ML IRRIGATION PRN; +HEPARIN SODIUM,PORCINE 10,000 UNIT in SODIUM CHLORIDE 0.9% 1,000 ML IRRIGATION PRN; -HYDROmorphone 0.5 MG/0.5 ML SYRINGE IVP PRN; -LACTATED RINGERS 1,000 ML IV SCH; -MIDAZOLAM 2 MG/2 ML VIAL IV PRN; +NITROGLYCERIN SL TABS 0.4 MG TAB SUBLINGUAL PRN; -ONDANSETRON 4 MG/2 ML VIAL IVP ONE
[2023-08-10] MEDS: SODIUM CHLORIDE 0.9% 1,000 ML in EMPTY BAG 1 BAG IV SCH (07:13)
[2023-08-10 07:34] LABS: Glucose,Whole Blood 163 mg/dL (70-110)
[2023-08-10 07:44] VITALS: TEMP 97.5
[2023-08-10] MEDS: ASPIRIN 325 MG TAB PO ONE (07:48)
[2023-08-10] MEDS ORDERED: LOSARTAN 50 MG TAB PO STA (07:51)
[2023-08-10] MEDS ORDERED: carvediloL 3.125 MG TAB PO STA (07:52)
[2023-08-10 08:02] LABS: Basophils % (A) 0 %; Eosinophils # (A) 0.1 k/uL (0-0.7); Eosinophils % (A) 2 %; HCT 40.5 % (39.0-53.0); HGB 13.1 gm/dL (13.0-17.5); Lymphocytes # (A) 1.2 k/uL (1.0-4.8); Lymphocytes % (A) 17 %; MCH 28.8 pg (25.0-35.0); MCHC 32.4 g/dL (31.0-37.0); MCV 88.9 fL (80.0-100.0); Mean Platelet Volume 8.3; Monocytes # (A) 0.5 k/uL (0-1.0); Monocytes % (A) 7 %; Neutrophils # (A) 5.2 k/uL (1.3-7.7); Neutrophils % (A) 73 %; Platelet Count 200 k/uL (150-450); RBC 4.55 m/uL (4.30-5.90); RDW 13.6 % (11.5-15.5); WBC 7.1 k/uL (3.8-10.6)
[2023-08-10] MEDS ORDERED: HEPARIN SODIUM 1,000 UN/ML (10ML VL) ONE ×2 (11:51→12:51)
[2023-08-10] MEDS ORDERED: VERAPAMIL 2.5 MG/ML 2 ML AMP ONE (11:52)
[2023-08-10] MEDS ORDERED: fentaNYL (PF) 50 MCG/ML 2 ML AMP ONE (11:52)
[2023-08-10] MEDS: fentaNYL (PF) 50 MCG/ML 2 ML AMP IVP ONE (12:09)
[2023-08-10] MEDS: LIDOCAINE 2% (PF) 20 MG/ML 5 ML VIAL SQ ONE (12:12)
[2023-08-10] MEDS: MIDAZOLAM 2 MG/2 ML VIAL IVP ONE (12:12)
[2023-08-10] MEDS: VERAPAMIL SYRINGE (5 MG/10 ML) INTRAARTER ONE (12:15)
[2023-08-10] MEDS: HEPARIN SODIUM 1,000 UN/ML (10ML VL) IVP ONE ×2 (12:19→12:53)
[2023-08-10] MEDS ORDERED: CLOPIDOGREL 75 MG TAB ONE (12:30)
[2023-08-10] MEDS: CLOPIDOGREL 75 MG TAB PO ONE (12:33)
[2023-08-10] MEDS: IOPAMIDOL-370 100ML BTL INJ ONE ×2 (12:34→12:58)
[2023-08-10] MEDS ORDERED: NITROGLYCERIN SL TABS 0.4 MG TAB SUBLINGUAL PRN (13:19)
[2023-08-10] MEDS ORDERED: ATROPINE SULFATE 0.1 MG/ML 10ML SYRINGE IV PRN (13:19)
[2023-08-10] MEDS ORDERED: ZOLPIDEM 5 MG TAB PO PRN (13:19)
[2023-08-10] MEDS ORDERED: RX INFO: IV CONTRAST WAS GIVEN 1 EACH MISC MISCELLANE PRN (13:19)
[2023-08-10] MEDS ORDERED: MAG HYDROX/AL HYDROX/SIMETH 30 ML CUP PO PRN (13:19)
[2023-08-10] MEDS ORDERED: NON FORMULARY DRUG (Naloxone Hcl [Naloxone Hcl] 4 MG Spray) NS PRN (13:21)
[2023-08-10] MEDS ORDERED: SODIUM CHLORIDE 0.9% 1,000 ML in EMPTY BAG 1 BAG IV SCH (13:30)
--- NOTE | 2023-08-10 13:32 | P.CARDCATH ---
Date of Procedure: 08/10/23 Description of Procedure: Cardiac Catheterization: The patient is a 73-year-old male with known history of hypertension, hyperlipidemia, diabetes mellitus who recently presented with progressive dyspnea, was found to be in atrial fibrillation and he subsequently had an abnormal MPI. Recommendations were made regarding cardiac catheterization, the risks and the complications were discussed with the patient who is in full understanding and agreement. Procedure Description: Patient was brought to color laboratory technician in fasting semi-sedated state after receiving Fentanyl and Benadryl achieiving moderate conscious sedated state. Using Xylocaine Anesthesia and modified Seldinger technique, a 6-[place] sheath was in troduced in the right radial artery . Subsequently, selective coronary angiography was performed using a 5-[place] 3.5 bend right Rainer catheter and 4 bend left Rainer catheter catheter. Multiple views of the coronary artery including hemiaxial views were obtained. The 5 [place] pigtail catheter was used to cross the aortic valve and LVEDP was calculated. PCI: After removing the catheters a 6 [place] EBU 3.75 guiding catheter was introduced into the system and after cannulating the left main a 0.014 BMW J-wire was positioned in the distal LAD subsequently a 2.5 x 12 mm NC trek balloon was a dvanced and 2 inflation at 8 art were done. After removing the balloon a [employer] [place] eye IVUS catheter was introduced and imaging were obtained. Subsequently a 2.5 x 18 mm Xience andrea point stent was deployed at 16 art. Repeat IVUS imaging was done and after removing the catheter a 3.0 x 12 mm NC trek balloon was advanced and 2 inflation at 10 art were done. Repeat IVUS imaging was done that showed good deployment of the stent. Subsequently the wire was removed and imaging were obtained and revealed stable successful stenting. Following that, catheter and sheath were removed. Hemostasis was obtained with deployment of vascular band . There was no immediate complication. Patient was returned to room in stable condition. Of note, the patient received a total of 12,000 units of intravenous heparin as well as intra-arterial verapamil. He received an oral loading dose of clopidogrel. His ACT was followed. He had chest discomfort and EKG changes with the inflations that resolved at the end of the procedure. Findings: Left main: This is a large size vessel bifurcating into LAD and left circumflex, left main has no obstructive disease LAD: This is a large size vessel the proximal segment appears to be aneurysmal. It gives rise to 3 diagonal branch of small to moderate caliber. In the mid distal segment there is a 95% stenosis prior to the apex, the rest of the vessel has no high-grade stenosis Left circumflex: This is a nondominant vessel, large in caliber, giving rise to 2 obtuse marginal branch. The left circumflex has mild intimal disease without any high-grade stenosis. RCA: This is a large dominant vessel, aneurysmal proximally. Has mild intimal plaque in the midsegment of 10 to 20% without any evidence of high-grade stenosis Left Ventriculogram: Not performed Hemodynamics: There was no gradient across aortic valve, LVEDP was 15-20 mmHg Conclusion: 1. Significant disease in the mid distal LAD 2. Aneurysmal proximal LAD and RCA 3. Right dominance 4. Successful stenting of the mid distal LAD with reduction of the stenosis from 95% to less than 5% with IVUS imaging Recommendations: The patient will continue on aspirin and Plavix, the aspirin will be stopped in 1 week and he will continue on Plavix and anticoagulation for 6 months without any interruption in addition to aggressive coronary risks modification, attempting to maintain LDL below 70 mg/dL. Attempt to restore sinus mechanism will be addressed.. The findings and the recommendations were discussed with the patient and the family and they were in full understanding and agreement. Duration of sedation is 46 minutes.
[2023-08-10 14:55] VITALS: PULSE 77
[2023-08-10] MEDS: SODIUM CHLORIDE 0.9% 500 ML 500 ML IV ONE (15:30)
[2023-08-10 15:31] VITALS: BP 147/67; RESP 16
[2023-08-10] MEDS ORDERED: glipiZIDE 10 MG TAB PO SCH (17:30)
[2023-08-10] MEDS ORDERED: METOPROLOL TARTRATE 25 MG TAB PO SCH (21:00)
[2023-08-10] MEDS ORDERED: ATORVASTATIN 20 MG TAB PO SCH (21:00)
[2023-08-10] MEDS ORDERED: LOSARTAN 50 MG TAB PO SCH (21:00)
[2023-08-11] MEDS ORDERED: ASPIRIN 81 MG PO SCH (09:00)
[2023-08-11] MEDS ORDERED: PIOGLITAZONE 30 MG TAB PO SCH (09:00)
[2023-08-11] MEDS ORDERED: ISOSORBIDE DINITRATE 10 MG TAB PO SCH (09:00)
[2023-08-11] MEDS ORDERED: FUROSEMIDE 20 MG TAB PO SCH (09:00)
[2023-08-11] MEDS ORDERED: CLOPIDOGREL 75 MG TAB PO SCH (09:00)
[2023-08-11] MEDS ORDERED: traZODone HCL 100 MG TAB PO SCH (09:00)
== END 2023-08-10 16:34 | disposition home or self-care (01) ==
LOC: CATHCVL 06:56 → 6NMEDSUR 13:40 → CATHCVL 16:34
PROVIDERS: ATTEND Internal Medicine Interventional Cardiology
DX: I48.11 Longstanding persistent atrial fibrillation (principal); E78.2 Mixed hyperlipidemia; I10 Essential (primary) hypertension; E11.9 Type 2 diabetes mellitus without complications; Z82.49 Family history of ischemic heart disease and other diseases of the circulatory system; Z88.2 Allergy status to sulfonamides; Z79.84 Long term (current) use of oral hypoglycemic drugs; Z87.891 Personal history of nicotine dependence; Z79.01 Long term (current) use of anticoagulants; Z79.899 Other long term (current) drug therapy
CPT/HCPCS: 92978; 93458; 85025; C9600; C1769 ×3; C1887; C1894; C1753; C1874; C1725 ×2; J2250; J3010; J1644; Q9967; J2001

== ENCOUNTER 2023-08-29 05:44 | Day surgery (SDC) | payer MEDICARE ==
[2023-08-28 11:50] VITALS: BMI 50.7
[2023-08-29] MEDS: SODIUM CHLORIDE 0.9% 1,000 ML IV SCH (06:37)
[2023-08-29 06:40] VITALS: TEMP 97.1
[2023-08-29 06:50] LABS: Glucose,Whole Blood 181 mg/dL (70-110)
[2023-08-29] MEDS ORDERED: PROPOFOL 10 MG/ML 20 ML VIAL IV ONE (07:10)
[2023-08-29] MEDS ORDERED: LIDOCAINE 1% INJ 10MG/ML (20 ML MDV) ONE (07:10)
[2023-08-29] MEDS: BENZOCAINE SPRAY 1 CAN TOPICAL ONE (07:13)
--- NOTE | 2023-08-29 07:37 | P.PCN ---
Date of Procedure: 08/29/23 Description of Procedure: Indication: Atrial fibrillation Procedure Description: After explaining the procedure to the patient, it's risk and complications, blood pressure, heart rate and O2 saturation were monitored. The throat was sprayed with Cetacaine. Patient received sedation per anesthesia department . The probe was introduced into the esophagus without difficulty. Images were obtained. Following that, the probe was removed. There was no immediate complication. Findings: Left atrial size is dilated, left atrial appendage is normal. Left ventricular size and systolic function are normal. The aortic valve is a tricuspid valve with fibrocalcific changes and preserved opening. Mitral annulus calcification was noted. The tricuspid valve is normal. Descending thoracic aorta appears to be normal. Contrast bubble study revealed no shunting across the interatrial septum. No pericardial fusion was noted. Doppler: Pulse wave and color Doppler were obtained, and revealed mild mitral and tricuspid regurgitation there was no shunting by color Doppler study. Conclusion: 1. Dilated left atrium with normal appearance of the left atrial appendage 2. Normal ventricular size and systolic function 3. Mild mitral and tricuspid regurgitation 4. No shunting across the interatrial septum 5. Normal appearance of the descending thoracic aorta Cardioversion: After performing MILLIE and obtaining a sedated state synchronized biphasic cardioversion using 150 J was performed with tenriism of sinus mechanism, there was no immediate complications.
[2023-08-29 08:28] LABS: Glucose,Whole Blood 166 mg/dL (70-110)
[2023-08-29 08:44] VITALS: BP 127/82; PULSE 66; RESP 28
[2023-08-29] MEDS ORDERED: NON FORMULARY DRUG (Metformin Hcl [Glucophage] 1,000 MG Tablet) PO SCH (09:00)
[2023-08-29] MEDS ORDERED: RIVAROXABAN 20 MG TAB PO SCH (09:00)
[2023-08-29] MEDS ORDERED: traZODone HCL 50 MG TAB PO SCH (09:00)
[2023-08-29] MEDS ORDERED: FUROSEMIDE 20 MG TAB PO SCH (09:00)
[2023-08-29] MEDS ORDERED: CLOPIDOGREL 75 MG TAB PO SCH (09:00)
[2023-08-29] MEDS ORDERED: PIOGLITAZONE 30 MG TAB PO SCH (09:00)
[2023-08-29] MEDS ORDERED: glipiZIDE 10 MG TAB PO SCH (17:30)
[2023-08-29] MEDS ORDERED: NON FORMULARY DRUG (Simvastatin 20 MG Tab) PO SCH (21:00)
== END 2023-08-29 08:57 | disposition home or self-care (01) ==
LOC: OR 05:44
PROVIDERS: ATTEND Internal Medicine Interventional Cardiology
DX: I08.1 Rheumatic disorders of both mitral and tricuspid valves (principal); I48.91 Unspecified atrial fibrillation; E78.5 Hyperlipidemia, unspecified; I10 Essential (primary) hypertension; E11.9 Type 2 diabetes mellitus without complications; E66.01 Morbid (severe) obesity due to excess calories; Z85.528 Personal history of other malignant neoplasm of kidney; Z79.899 Other long term (current) drug therapy; Z98.890 Other specified postprocedural states; Z79.02 Long term (current) use of antithrombotics/antiplatelets
CPT/HCPCS: 93312; 93320; 93325; 92960; J2001; J2704

== ENCOUNTER → 2023-10-12 | Outpatient (CLI) | payer MEDICARE ==
--- NOTE | 2023-10-12 12:59 | US ---
EXAMINATION TYPE: US kidneys/renal and bladder DATE OF EXAM: 10/12/2023 COMPARISON: CT CLINICAL INDICATION: Male, 73 years old with history of ABN KIDNEY FUNCTION; Abnormal renal function EXAM MEASUREMENTS: Right Kidney: 12.5 x 6.3 x 5.9 cm Right Kidney: No evidence of hydro, difficult to visualize due to large pt body habitus Left Kidney: Surgically absent. No recurrent masses within the left renal bed is evident. Bladder: wnl Bilateral Jets seen: Right jet visualized IMPRESSION: 1. Limited right renal ultrasound appears unremarkable.
== END | disposition home or self-care (01) ==
LOC: RADUSWWP 09:44
PROVIDERS: ATTEND Internal Medicine
DX: R94.4 Abnormal results of kidney function studies (principal)
CPT/HCPCS: 76770

== ENCOUNTER 2024-12-17 08:54 | Day surgery (SDC) | payer MEDICARE ==
[~2024-12-17 08:54] MED LIST changes: -ALPRAZolam 0.25 MG TAB PO PRN; -ALPRAZolam 0.5 MG TAB PO PRN; -ASPIRIN 325 MG TAB PO STA; -ATORVASTATIN 80 MG TAB PO STA; -HEPARIN SODIUM,PORCINE (1 ML) 2,500 UNIT in SODIUM CHLORIDE 0.9% 250 ML IRRIGATION PRN; -HEPARIN SODIUM,PORCINE 10,000 UNIT in SODIUM CHLORIDE 0.9% 1,000 ML IRRIGATION PRN; +LIDOCAINE 1% (10MG/ML) FOR IV START INTRADERMA PRN; -NITROGLYCERIN SL TABS 0.4 MG TAB SUBLINGUAL PRN
[2024-12-17] MEDS: IV FLUID CONTINUATION 1,000 ML IV ONE (09:33)
[2024-12-17 09:48] VITALS: TEMP 97.4
[2024-12-17] MEDS: LACTATED RINGERS 1,000 ML IV SCH (09:53)
[2024-12-17 10:15] LABS: Glucose,Whole Blood 129 mg/dL (70-110)
[2024-12-17] MEDS ORDERED: PROPOFOL 10 MG/ML 20 ML VIAL IV ONE (10:26)
--- NOTE | 2024-12-17 10:40 | P.PCN ---
Date of Procedure: 12/17/24 Procedure(s) Performed: BRIEF HISTORY: Patient is a 74-year-old pleasant white male scheduled for an elective colonoscopy as a part of screening for a history of colon cancer diagnosed in 1997. Last colonoscopy was 6 years ago. PROCEDURE PERFORMED: Colonoscopy with snare polypectomy. PREOPERATIVE DIAGNOSIS: Screening for prior history of colon cancer. IV sedation per Anesthesia. PROCEDURE: After informed consent was obtained, the patient, was brought into the endoscopy unit. IV sedation was administered by Anesthesia under continuous monitoring. Digital rectal examination was normal. Initially the Olympus CF-160 flexible video colonoscope was then inserted in the rectum, gradually advanced into the right colon without any difficulty. Careful examination was performed as the scope was gradually being withdrawn. The ileocolic anastomosis was visualized and appeared normal. Mucosa of the ascending colon appeared normal. The transverse colon there was a 5 mm polyp that was removed by cold snare polypectomy. Rest of the, transverse colon, descending colon, sigmoid colon, and rectum appeared normal. Retroflexion was performed in the rectum and no lesions were seen. The patient tolerated the procedure well. IMPRESSION: 5 mm transverse colon polyp status post cold snare polypectomy Rest of the colon appeared normal RECOMMENDATIONS: Findings of this examination were discussed with the patient as well as his family.. He was advised to follow-up with the biopsy results. Recommended repeat colonoscopy in 5 years because of history of colon cancer
[2024-12-17 10:59] VITALS: BP 127/77; PULSE 66; RESP 16
== END 2024-12-17 11:12 | disposition home or self-care (01) ==
LOC: ORWHC2ENDO 08:54
PROVIDERS: ATTEND Internal Medicine Gastroenterology
DX: Z12.11 Encounter for screening for malignant neoplasm of colon (principal); K63.5 Polyp of colon; I48.91 Unspecified atrial fibrillation; I10 Essential (primary) hypertension; E11.9 Type 2 diabetes mellitus without complications; E78.5 Hyperlipidemia, unspecified; F32.A Depression, unspecified; E66.01 Morbid (severe) obesity due to excess calories; Z79.02 Long term (current) use of antithrombotics/antiplatelets; Z79.84 Long term (current) use of oral hypoglycemic drugs; Z79.899 Other long term (current) drug therapy; Z85.038 Personal history of other malignant neoplasm of large intestine; Z95.5 Presence of coronary angioplasty implant and graft; Z90.5 Acquired absence of kidney; Z88.2 Allergy status to sulfonamides
CPT/HCPCS: 88305; 45385; J2704